=== PATIENT | female | born 1990 | race Caucasian/White ===

== ENCOUNTER 2022-08-19 12:00 | Outpatient (CLI) | payer MEDICAID, SELFPAY ==
[2022-08-19 12:06] LABS: Hemoglobin A1C 5.4 % (<5.7)
[2022-08-19 12:15] LABS: TSH (W/Ref FT4) 1.83 uIU/mL (0.36-3.74)
[2022-08-19 12:16] LABS: HCG Quant, Pregnancy < 1 mIU/mL (1-3)
== END 2022-08-19 12:01 | disposition home or self-care (01) ==
LOC: LBO 12:00
PROVIDERS: PCP Family Medicine; Visit Provider Nurse Practitioner Women's Health
DX: R63.4 Abnormal weight loss (principal); O20.8 Other hemorrhage in early pregnancy; Z3A.01 Less than 8 weeks gestation of pregnancy
CPT/HCPCS: 36415; 83036; 84443; 84702

== ENCOUNTER 2022-08-19 18:47 | Outpatient (REF) | payer MEDICAID, SELFPAY ==
[2022-08-20 15:24] LABS: Chlamydia Result Negative (Negative); GC Result Negative (Negative)
== END 2022-08-19 18:48 | disposition home or self-care (01) ==
LOC: LBN 18:47
PROVIDERS: PCP Family Medicine; Visit Provider Nurse Practitioner Women's Health
DX: Z11.3 Encounter for screening for infections with a predominantly sexual mode of transmission (principal)
CPT/HCPCS: 87491; 87591